=== PATIENT | male | born 1965 | race Caucasian/White ===

== ENCOUNTER 2025-07-06 09:18 | Outpatient (CLI) | payer MEDICARE, SELFPAY ==
--- NOTE | 2025-07-06 09:31 | XR_ITS ---
FINAL REPORT TECHNIQUE: 4 views lumbar spine CLINICAL HISTORY: low back pain..mulp back surgery COMPARISON: None FINDINGS: AP and lateral views of the lumbar spine were obtained. There is no prior exam for comparison. There is no acute fracture. Vertebral body height is preserved. There are interbody fusion grafts noted at the L4-5 and L5-S1 levels, with laminectomy defects at those levels as well. There is mild dextroscoliosis. No acute paraspinal abnormality. IMPRESSION: Interbody fusion grafts are present at the L4-5 and L5-S1 levels, with evidence of prior laminectomies at those levels as well. No acute osseous abnormality. Reviewed, Interpreted and Dictated by Arslan Knott MD Transcribed by Oralia Merritt Authenticated and [facility]
== END 2025-07-06 23:59 | disposition home or self-care (01) ==
LOC: RAD 09:21
PROVIDERS: PCP Nurse Practitioner Family; Visit Provider Nurse Practitioner Family
DX: M41.86 Other forms of scoliosis, lumbar region (principal); Z98.1 Arthrodesis status
CPT/HCPCS: 72100